=== PATIENT | female | born 1995 ===

== ENCOUNTER 2025-08-22 23:06 | Emergency (ER) | payer SELFPAY ==
[2025-08-22 23:08] VITALS: BP 113/70; PULSE 100; RESP 19; TEMP 36.7; O2SAT 100
[2025-08-22 23:14] VITALS: PULSE 87; RESP 18; O2SAT 98; BMI 34.7
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
[2025-08-22 23:22] VITALS: BP 150/74; PULSE 98; RESP 16; TEMP 37.2; O2SAT 100
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
[2025-08-23 00:09] VITALS: BP 150/74; PULSE 96; RESP 19; TEMP 36.9; O2SAT 97
[2025-08-23 01:22] VITALS: BP 138/76; PULSE 68; RESP 16; TEMP 36.7; O2SAT 98
== END 2025-08-23 01:23 | disposition home or self-care (01) ==
LOC: SERX 08-23 01:45
PROVIDERS: Emergency Provider Emergency Medicine
DX: S63.92XA Sprain of unspecified part of left wrist and hand, initial encounter (principal); T14.8XXA Other injury of unspecified body region, initial encounter; R51.9 Headache, unspecified; S19.9XXA Unspecified injury of neck, initial encounter; V49.40XA Driver injured in collision with unspecified motor vehicles in traffic accident, initial encounter; Y92.410 Unspecified street and highway as the place of occurrence of the external cause
CPT/HCPCS: 70450; 70486; 71045; 71250; 72125; 73120; 74176; 99284